=== PATIENT | female | born 1985 | race Caucasian/White ===

== ENCOUNTER 2017-09-29 16:56 | Emergency (ER) | payer SELFPAY ==
[~2017-09-29] VITALS: Ht 172.7 cm; Wt 84.7 kg
[~2017-09-29 16:56] MED LIST: PERCOCET 5/31 TABLET PO; ZOFRAN ODT4 MG PO; ZYRTEC10 M3 PO
[2017-09-29 16:59] VITALS: BP 94/66
[2017-09-29 18:13] LABS: HEMOGLOBIN 14.9 G/DL (11.9-15.5); MCH 32.1 PG (29.0-34.0); MCHC 34.7 G/DL (30.0-36.0); MCV 92.7 FL (83-99); RBC DIS.WIDTH-CV 12.3 % (11.8-14.6); RBC DIS.WIDTH-SD 41.6 % (39-53); RED BLOOD COUNT 4.64 M/uL (3.80-5.20); WHITE BLOOD COUNT 15.6 K/uL (4.1-10.2)
[2017-09-29 18:22] LABS: ALBUMIN 4.3 g/dL (3.2-4.8); CHLORIDE 103 mEq/L (99-109); POTASSIUM 4.1 mEq/L (3.7-5.4); SODIUM 138 mEq/L (136-147)
[2017-09-29 18:23] LABS: AMYLASE 40 IU/L (1-118)
[2017-09-29 18:24] LABS: GLUCOSE 112 mg/dL (70-99); TOTAL PROTEIN 6.9 g/dL (6.4-8.3)
[2017-09-29 18:26] LABS: TOTAL BILIRUBIN 2.1 mg/dL (0.0-1.0)
[2017-09-29 18:28] LABS: ALKALINE PHOSPHATASE 76 IU/L (3-129); CREATININE 0.7 mg/dL (0.6-1.3); GFR ESTIMATE (CALCULATED) > 59 mL/min/
[2017-09-29 18:29] LABS: AST (GOT) 522 IU/L (2-34); UREA NITROGEN (BUN) 11 mg/dL (9-23)
[2017-09-29 18:31] LABS: ALT (GPT) 350 IU/L (3-49); LIPASE 27 U/L (1.0-51.0)
[2017-09-29 19:08] LABS: PLATELET CLUMPS PRESENT - PLATELET COUNT APPEARS ADQ.; PLATELET COUNT UNABLE TO REPORT K/uL (156-360)
[2017-09-29 19:09] LABS: QUANTITATIVE HCG < 4.0 MIU/ML
[2017-09-30] MEDS ORDERED: PROTONIX40 MG PO (16:30)
== END 2017-09-29 21:20 | disposition left against medical advice (07) ==
LOC: EME 16:56
PROVIDERS: Physician Assistant
DX: K80.20 Calculus of gallbladder without cholecystitis without obstruction (principal); K21.9 Gastro-esophageal reflux disease without esophagitis; F17.200 Nicotine dependence, unspecified, uncomplicated; Z88.0 Allergy status to penicillin
CPT/HCPCS: 76705; 80053; 82150; 83690; 84702; 85027; 93005; 99281; 99285

== ENCOUNTER 2017-09-30 15:03 | Observation (INO) | payer OTHER ==
[~2017-09-30] VITALS: Ht 172.7 cm; Wt 84.1 kg
[2017-09-30 15:54] LABS: HEMATOCRIT 41.8 % (36.0-46.0); HEMOGLOBIN 14.7 G/DL (11.9-15.5); MCH 32.1 PG (29.0-34.0); MCHC 35.2 G/DL (30.0-36.0); MCV 91.3 FL (83-99); RBC DIS.WIDTH-CV 12.2 % (11.8-14.6); RED BLOOD COUNT 4.58 M/uL (3.80-5.20)
[2017-09-30 16:03] LABS: ALBUMIN 4.5 g/dL (3.2-4.8)
[2017-09-30 16:04] LABS: CHLORIDE 102 mEq/L (99-109); POTASSIUM 3.9 mEq/L (3.7-5.4); SODIUM 137 mEq/L (136-147)
[2017-09-30 16:06] LABS: GLUCOSE 101 mg/dL (70-99); TOTAL PROTEIN 7.1 g/dL (6.4-8.3)
[2017-09-30 16:10] LABS: CREATININE 0.7 mg/dL (0.6-1.3); GFR ESTIMATE (CALCULATED) > 59 mL/min/
[2017-09-30 16:11] LABS: AST (GOT) 371 IU/L (2-34); UREA NITROGEN (BUN) 10 mg/dL (9-23)
[2017-09-30 16:13] LABS: ALT (GPT) 539 IU/L (3-49)
[2017-09-30 16:18] LABS: ALKALINE PHOSPHATASE 118 IU/L (3-129); TOTAL BILIRUBIN 3.5 mg/dL (0.0-1.0)
[2017-09-30 16:22] LABS: QUANTITATIVE HCG < 4.0 MIU/ML
[2017-09-30] MEDS ORDERED: PROTONIX40 MG PO (16:30)
[2017-09-30 16:43] LABS: HEMATOLOGY COMMENT 1 SN; PLAT.SUFFICIENCY ADEQUATE; PLATELET COUNT UNABLE TO REPORT K/uL (156-360)
[2017-09-30 17:00] LABS: APPEARANCE CLEAR ((CLEAR)); BILIRUBIN NEGATIVE; BLOOD SMALL; COLOR AMBER ((YELLOW)); GLUCOSE (STRIP) NEGATIVE; KETONES NEGATIVE; LEUKOCYTES TRACE; NITRITE NEGATIVE; PROTEIN (STRIP) NEGATIVE; UROBILINOGEN 0.2 MG/DL (0.2-1.0)
[2017-09-30 17:09] LABS: BACTERIA RARE /HPF; EPITHELIAL CELLS RARE /HPF; MUCUS NONE SEEN /LPF; RED BLOOD CELLS 0-5 /HPF (0-5); UCUL ADDED? NO; WHITE BLOOD CELLS 0-5 /HPF (0-5)
[2017-09-30 17:24] LABS: AMYLASE 45 IU/L (1-118)
[2017-09-30 17:33] LABS: LIPASE 27 U/L (1.0-51.0)
[2017-09-30 23:18] VITALS: BP 127/58
[2017-10-01 04:46] VITALS: BP 120/77
[2017-10-01 04:53] LABS: HEMATOCRIT 39.3 % (36.0-46.0); HEMOGLOBIN 13.8 G/DL (11.9-15.5); MCH 32.2 PG (29.0-34.0); MCHC 35.1 G/DL (30.0-36.0); MCV 91.8 FL (83-99); PLATELET COUNT 212 K/uL (156-360); RBC DIS.WIDTH-CV 12.3 % (11.8-14.6); RBC DIS.WIDTH-SD 41.2 % (39-53); RED BLOOD COUNT 4.28 M/uL (3.80-5.20); WHITE BLOOD COUNT 12.4 K/uL (4.1-10.2)
[2017-10-01 05:06] LABS: AMYLASE 37 IU/L (1-118)
[2017-10-01 05:07] LABS: CHLORIDE 108 mEq/L (99-109); POTASSIUM 3.8 mEq/L (3.7-5.4); SODIUM 137 mEq/L (136-147)
[2017-10-01 05:10] LABS: GLUCOSE 85 mg/dL (70-99)
[2017-10-01 05:13] LABS: ALKALINE PHOSPHATASE 117 IU/L (3-129); CREATININE 0.7 mg/dL (0.6-1.3); GFR ESTIMATE (CALCULATED) > 59 mL/min/
[2017-10-01 05:14] LABS: LIPASE 22 U/L (1.0-51.0); UREA NITROGEN (BUN) 8 mg/dL (9-23)
[2017-10-01 05:15] LABS: AST (GOT) 211 IU/L (2-34)
[2017-10-01 05:16] LABS: ALT (GPT) 425 IU/L (3-49); TOTAL BILIRUBIN 4.3 mg/dL (0.0-1.0)
[2017-10-01 08:13] VITALS: BP 112/76
[2017-10-01 19:30] VITALS: BP 125/74
[2017-10-02 05:12] LABS: ALBUMIN 3.6 g/dL (3.2-4.8)
[2017-10-02 05:13] LABS: CHLORIDE 110 mEq/L (99-109); POTASSIUM 3.9 mEq/L (3.7-5.4); SODIUM 139 mEq/L (136-147)
[2017-10-02 05:15] LABS: GLUCOSE 83 mg/dL (70-99); TOTAL PROTEIN 5.4 g/dL (6.4-8.3)
[2017-10-02 05:18] LABS: ALKALINE PHOSPHATASE 101 IU/L (3-129)
[2017-10-02 05:19] LABS: CREATININE 0.6 mg/dL (0.6-1.3); GFR ESTIMATE (CALCULATED) > 59 mL/min/
[2017-10-02 05:20] LABS: UREA NITROGEN (BUN) 5 mg/dL (9-23)
[2017-10-02 05:21] LABS: ALT (GPT) 269 IU/L (3-49)
[2017-10-02 05:22] LABS: AST (GOT) 73 IU/L (2-34); TOTAL BILIRUBIN 1.6 mg/dL (0.0-1.0)
[2017-10-02 09:44] LABS: BASOPHIL (%) 0.7 % (0-1); BASOPHIL COUNT 0.1 K/uL (0-0.1); EOSINOPHIL (%) 1.7 % (0-5); EOSINOPHIL COUNT 0.2 K/uL (0-0.3); HEMATOCRIT 38.5 % (36.0-46.0); HEMOGLOBIN 12.9 G/DL (11.9-15.5); IMMATURE GRANULOCYTE (%) 0.3 % (0.0-0.7); LYMPHOCYTE (%) 24.7 % (15-42); LYMPHOCYTE COUNT 2.7 K/uL (1.0-2.8); MCH 31.2 PG (29.0-34.0); MCHC 33.5 G/DL (30.0-36.0); MONOCYTE (%) 6.3 % (3-12); MONOCYTE COUNT 0.7 K/uL (0-0.8); NEUTROPHIL (%) 66.3 % (45-76); NEUTROPHIL COUNT 7.3 K/uL (1.8-6.4); PLATELET COUNT 212 K/uL (156-360); RBC DIS.WIDTH-CV 12.5 % (11.8-14.6); RBC DIS.WIDTH-SD 42.9 % (39-53); RED BLOOD COUNT 4.14 M/uL (3.80-5.20)
[2017-10-02 11:47] VITALS: BP 110/71
[2017-10-02 15:49] VITALS: BP 115/65
[2017-10-02 19:10] VITALS: BP 118/72
[2017-10-03 00:27] VITALS: BP 130/60
[2017-10-03 05:38] LABS: BASOPHIL COUNT 0.1 K/uL (0-0.1); EOSINOPHIL (%) 4.1 % (0-5); EOSINOPHIL COUNT 0.3 K/uL (0-0.3); HEMATOCRIT 35.8 % (36.0-46.0); HEMOGLOBIN 11.8 G/DL (11.9-15.5); IMMATURE GRANULOCYTE (%) 0.4 % (0.0-0.7); LYMPHOCYTE (%) 42.3 % (15-42); LYMPHOCYTE COUNT 3.5 K/uL (1.0-2.8); MCH 30.6 PG (29.0-34.0); MONOCYTE (%) 7.5 % (3-12); MONOCYTE COUNT 0.6 K/uL (0-0.8); NEUTROPHIL (%) 44.7 % (45-76); NEUTROPHIL COUNT 3.7 K/uL (1.8-6.4); PLATELET COUNT 201 K/uL (156-360); RBC DIS.WIDTH-CV 12.2 % (11.8-14.6); RBC DIS.WIDTH-SD 41.9 % (39-53); RED BLOOD COUNT 3.85 M/uL (3.80-5.20); WHITE BLOOD COUNT 8.3 K/uL (4.1-10.2)
[2017-10-03 06:06] LABS: ALBUMIN 3.6 G/DL (3.2-4.8); ALKALINE PHOSPHATASE 79 IU/L (3-129); ALT (GPT) 170 IU/L (3-49); AST (GOT) 44 IU/L (2-34); CHLORIDE 108 MEQ/L (99-109); CREATININE 0.5 MG/DL (0.6-1.3); GFR ESTIMATE (CALCULATED) > 59 mL/min/; GLUCOSE 81 mg/dL (70-99); POTASSIUM 3.8 MEQ/L (3.7-5.4); SODIUM 139 MEQ/L (136-147); TOTAL BILIRUBIN 1.3 MG/DL (0.0-1.0); TOTAL PROTEIN 5.1 G/DL (6.4-8.3); UREA NITROGEN (BUN) 5 mg/dL (9-23)
[2017-10-03 07:40] VITALS: BP 131/78
[2017-10-03] MEDS ORDERED: NORCO 5/3251 TABLET PO (11:17)
[2017-10-03 15:40] VITALS: BP 121/74
== END 2017-10-03 15:50 | disposition home or self-care (01) ==
LOC: EME 15:03 → EDOF 21:42 → 4SOUTH 21:42 → ENRESERV 21:54 → 4SOUTH 23:12
PROVIDERS: Internal Medicine; Physician Assistant; Physician Assistant Medical
PROC: 0FJB4ZZ Inspection of Hepatobiliary Duct, Percutaneous Endoscopic Approach (ICD-10-PCS; principal; 2017-10-03)
PROC: 0FT44ZZ Resection of Gallbladder, Percutaneous Endoscopic Approach (ICD-10-PCS; principal; 2017-10-03)
PROC: BF13YZZ Fluoroscopy of Gallbladder and Bile Ducts using Other Contrast (ICD-10-PCS; principal; 2017-10-03)
DX: K80.65 Calculus of gallbladder and bile duct with chronic cholecystitis with obstruction (principal); K59.00 Constipation, unspecified; Z88.0 Allergy status to penicillin
CPT/HCPCS: 74181; 74300; 80053; 81003; 82150; 83690; 84702; 85025; 85027; 99281; 99285; C1725; C1769; C1894; G0378; J0131; J0744; J1170; J1644; J1885; J2250; J2270; J2405; J3010; J7030; S0020; S0030; S0074

== ENCOUNTER 2017-10-06 11:33 | Emergency (ER) | payer SELFPAY ==
[~2017-10-06] VITALS: Ht 172.7 cm; Wt 83.4 kg
[~2017-10-06 11:33] MED LIST changes: +NORCO 5/3251 TABLET PO; +PROTONIX40 MG PO
[2017-10-06 12:14] LABS: HEMATOCRIT 38.7 % (36.0-46.0); HEMOGLOBIN 13.5 G/DL (11.9-15.5); MCH 32.4 PG (29.0-34.0); MCHC 34.9 G/DL (30.0-36.0); MCV 92.8 FL (83-99); RBC DIS.WIDTH-CV 12.8 % (11.8-14.6); RBC DIS.WIDTH-SD 43.7 % (39-53); RED BLOOD COUNT 4.17 M/uL (3.80-5.20)
[2017-10-06 12:28] LABS: ALBUMIN 4.1 g/dL (3.2-4.8)
[2017-10-06 12:29] LABS: CHLORIDE 102 mEq/L (99-109); POTASSIUM 4.2 mEq/L (3.7-5.4); SODIUM 138 mEq/L (136-147)
[2017-10-06 12:31] LABS: GLUCOSE 109 mg/dL (70-99)
[2017-10-06 12:32] LABS: TOTAL PROTEIN 6.9 g/dL (6.4-8.3)
[2017-10-06 12:34] LABS: ALKALINE PHOSPHATASE 228 IU/L (3-129); TOTAL BILIRUBIN 2.8 mg/dL (0.0-1.0)
[2017-10-06 12:35] LABS: CREATININE 0.6 mg/dL (0.6-1.3); GFR ESTIMATE (CALCULATED) > 59 mL/min/
[2017-10-06 12:36] LABS: UREA NITROGEN (BUN) 10 mg/dL (9-23)
[2017-10-06 12:37] LABS: ALT (GPT) 311 IU/L (3-49); AST (GOT) 261 IU/L (2-34)
[2017-10-06 12:45] LABS: QUANTITATIVE HCG < 4.0 MIU/ML
[2017-10-06 13:12] LABS: PLAT.SUFFICIENCY ADEQUATE; PLATELET COUNT 238 K/uL (156-360)
[2017-10-06 13:18] LABS: LIPASE 85 U/L (1.0-51.0)
[2017-10-06 14:27] LABS: APPEARANCE CLEAR ((CLEAR)); BILIRUBIN NEGATIVE; BLOOD NEGATIVE; COLOR AMBER ((YELLOW)); GLUCOSE (STRIP) NEGATIVE; KETONES 5; LEUKOCYTES NEGATIVE; NITRITE NEGATIVE; PROTEIN (STRIP) NEGATIVE; SPECIFIC GRAVITY 1.015 (1.000-1.030); UCUL ADDED? NO
[2017-10-06] MEDS ORDERED: PEPCID20 MG PO (14:51)
[2017-10-06] MEDS ORDERED: CARAFATE1 GM PO (14:51)
[2017-10-06 15:46] VITALS: BP 118/69
== END 2017-10-06 15:47 | disposition home or self-care (01) ==
LOC: EME 11:33 → RME 11:33
DX: R10.13 Epigastric pain (principal); M54.9 Dorsalgia, unspecified; Z98.890 Other specified postprocedural states; Z90.49 Acquired absence of other specified parts of digestive tract; Z87.442 Personal history of urinary calculi; Z87.891 Personal history of nicotine dependence
CPT/HCPCS: 80053; 81003; 83690; 84702; 85027; 99281; 99283